=== PATIENT | male | born 1965 | race Caucasian/White ===

== ENCOUNTER → 2019-09-21 16:45 | Outpatient (CLI) | payer BC, SELFPAY ==
--- NOTE | 2019-09-21 | XR_ITS ---
PROCEDURE: XR SHOULDER RT MIN 2V CLINICAL INDICATION: Pain COMPARISON: No exams were available for comparison FINDINGS: No fracture or dislocation. No lytic or blastic change. There is normal mineralization. There are moderate osteoarthritic changes of the acromioclavicular joint. There is mild osteoarthritis of the glenohumeral joint with high-riding humeral head which can be seen with rotator cuff tear is. Other findings:None. IMPRESSION: Osteoarthritis of the AC joint with high-riding humeral head which may be seen with rotator cuff tear is. MRI may confirm Dictated by: Jd Philippe MD 09/21/2019 18:05 Electronically signed by Jd Philippe MD in [place] 09/21/2019 18:05
== END ==
PROVIDERS: PCP Family Medicine; Visit Provider Family Medicine
DX: M25.511 Pain in right shoulder (principal)
CPT/HCPCS: 73030

== ENCOUNTER → 2019-09-29 10:45 | Outpatient (CLI) | payer BC, SELFPAY ==
--- NOTE | 2019-09-29 10:49 | MR_ITS ---
PROCEDURE: MR SHOULDER RT WO CON CLINICAL INDICATION: ACUTE PAIN OF RIGHT SHOULDER Pain with limited range of motion COMPARISON: XR SHOULDER RT MIN 2V from 09/21/2019 TECHNIQUE: Routine multiplanar multi echo sequences are performed without gadolinium enhancement. FINDINGS: There is complete tear of the supraspinatus tendon with retraction of the musculotendinous fibers. The infraspinatus tendon is thinned with increased T2 signal consistent with partial tear.. The subscapularis and teres minor tendons appear intact. No obvious labral tear. There is a small shoulder joint effusion present. The bicipital tendon appears in place but is somewhat thinned. Small amount fluid is present in the subcoracoid region. Fluid is also present in the subdeltoid area and subacromial region. There are osteoarthritic changes of the acromioclavicular joint with subacromial stenosis IMPRESSION: 1. There is complete tear of the supraspinatus tendon with retraction of the musculotendinous fibers. And at least a partial tear of the infraspinatus tendon. 2. Acromioclavicular arthropathy with subacromial stenosis with shoulder joint effusion with fluid also in the sub coracoid region and deep to the deltoid and subacromial area Dictated by: Jd Philippe MD 09/30/2019 14:25 Electronically signed by Jd Philippe MD in [place] 09/30/2019 14:25
== END ==
PROVIDERS: PCP Family Medicine; Visit Provider Family Medicine
DX: M25.511 Pain in right shoulder (principal)
CPT/HCPCS: 73221

== ENCOUNTER → 2019-10-12 14:54 | Outpatient (CLI) | payer BC, SELFPAY ==
--- NOTE | 2019-10-12 15:00 | XR_ITS ---
PROCEDURE: XR CHEST 2V CLINICAL INDICATION: TOBACCO DEPENDENT Shortness of breath COMPARISON: No exams were available for comparison FINDINGS: Unremarkable cardiovascular structures No lobar consolidation or collapse. There is a faint nodular opacity overlying the left lower lung zone at the 6th rib on both sides and may be due to nipple shadows. May be confirmed with nipple markers. Other findings:Degenerative changes thoracic spine with mild kyphosis. Coronary artery calcifications are noted. IMPRESSION: There are coronary artery calcifications suggesting coronary artery disease. Probable bilateral nipple shadows which could be confirmed with repeat exam with nipple markers Dictated by: Jd Philippe MD 10/12/2019 16:23 Electronically signed by Jd Philippe MD in [place] 10/12/2019 16:23
[2019-10-12 15:30] LABS: Basophils % 0.5 % (0.1-2.0); Eosinophils # 0.1 K/mm3 (0.0-0.4); Eosinophils % 1.5 % (0.1-12.0); Hematocrit 48.6 % (42.0-52.0); Hemoglobin 16.7 g/dL (14.1-18.0); Lymphocytes # 2.8 K/mm3 (0.7-4.5); Mean Corpuscular HGB Conc 34.3 g/dL (31.8-35.4); Mean Corpuscular Hemoglobin 32.3 pg (27.0-31.2); Mean Corpuscular Volume 94.1 fl (80-94); Mean Platelet Volume 8.3 fl (7.4-10.4); Monocytes # 0.5 K/mm3 (0.1-1.0); Monocytes % 6.3 % (1.7-9.3); Neutrophils # 4.6 K/mm3 (1.8-7.8); Neutrophils % 56.6 % (37.0-80.0); Platelet Count 158 K/mm3 (142-424); Red Blood Count 5.16 M/mm3 (4.60-6.20); Red Cell Distribution Width 13.1 % (11.5-17.5); White Blood Count 8.1 K/mm3 (4.8-10.8)
--- NOTE | 2019-10-12 15:37 | ECG_ITS ---
APPROVED REPORT Exam: Resting ECG HR:59 bpm ECG Measurements Heart Rate 59 AXES RI 138 P 72 QRSd 94 QRS 17 QT 446 T 72 QTc 441 <Conclusion> Sinus bradycardia Otherwise normal ECG Electronically signed by : Mikie Freeman, 10/16/2019 08:11:53
[2019-10-12 16:40] LABS: Activated Partial Thrombo Time 26.6 seconds (23.6-34.0); INR 1.08 (0.9-1.1)
[2019-10-12 16:44] LABS: Alanine Aminotransferase 81 U/L (12-78); Albumin Level 4.3 g/dl (3.5-5.0); Albumin/Globulin Ratio 1.3 (1.1-1.8); Alkaline Phosphatase 93 U/L (38-126); Aspartate Amino Transferase 52 U/L (17-59); Bilirubin,Total 0.9 mg/dl (0.2-1.3); Blood Urea Nitrogen 12 mg/dl (9-20); Calcium 9.2 mg/dl (8.4-10.2); Carbon Dioxide 26 mmol/L (22.0-30.0); Chloride 106 mmol/L (98-107); Estimated Glomerular Filt Rate 117 ml/min (>60); GFR (African American) 141 ML/MIN (>60); Globulin 3.4 g/dL (1.3-3.2); Glucose 97 mg/dl (74-100); Sodium 139 mmol/L (136-145); Total Protein,Serum 7.7 g/dl (6.3-8.2)
== END ==
PROVIDERS: PCP Family Medicine; Visit Provider Family Medicine
DX: Z01.818 Encounter for other preprocedural examination (principal)
CPT/HCPCS: 36415; 71046; 80053; 85025; 85610; 85730; 93005

== ENCOUNTER → 2019-11-01 06:11 | Outpatient (CLI) | payer BC, SELFPAY ==
--- NOTE | 2019-11-01 06:14 | CA_ITS ---
APPROVED REPORT EXAM: Comprehensive 2D, Doppler, and color-flow Echocardiogram Pipe Fitter Maintenance: Shellie Roche CRT Ht: 6 ft 2 in Wt: 220lbs BSA: 2.26 BP: 175/80 mmHg Indications: Shortness of Breath, Fatigue, Pre-Op shoulder, smoker, abn ekg, 2D Dimensions LVOT 2.23 cm (M/F) 1.5-2.5 M-Mode Dimensions RVDd 2.11 cm (0.9-2.6) LVDd 5.45 cm (3.5-5.7) LVDs 3.89 cm (3.5-5.7) IVSd 1.35 cm (0.6-1.1) PWd 0.94 cm (0.6-1.1) EF (Teich) 54.60% FS 28.60% EDV (Teich) 144.40 mL ESV (Teich) 65.50 mL LV Diastology E/A Ratio 0.56 Mitral Valve MV A Velocity 94.00 (40-130 cm/s) Left Ventricle Left atrium is mildly enlarged, left ventricle is normal size, left ventricle wall thickness is upper limit of normal, there is preserved left ventricular systolic function, visually estimated ejection fraction 55% with no regional wall motion abnormality, grade 1 diastolic dysfunction seen without tissue Doppler evidence of raise left atrial pressure. Right Ventricle Right atrium and right ventricle are normal size and contractility. Aortic Valve Aortic valve is minimally thickened and fibrosed, there is no aortic stenosis or aortic insufficiency. Mitral Valve Mitral valve is grossly normal, there is mild mitral regurgitation. Tricuspid Valve Tricuspid valve grossly normal, there is mild tricuspid regurgitation. Tricuspid regurgitation jet velocity is inadequate for calculation of the right ventricular systolic pressure. Pulmonic Valve Pulmonic valve is poorly visualized. Great Vessels Aortic root is normal size. Pericardium No significant pericardial effusion noted. Conclusion 1. Mildly enlarged left atrium, normal left ventricular size, visually estimated ejection fraction 55% with no regional wall motion abnormality, grade 1 diastolic dysfunction seen without tissue Doppler evidence of raise left atrial pressure. 2. Mild mitral and tricuspid regurgitation. 3. No significant pericardial effusion noted. Electronically signed by : Demarco Dalton, 11/01/2019 19:35:02
--- NOTE | 2019-11-01 06:18 | CA_ITS ---
APPROVED REPORT Exam: Exercise Treadmill Technologist: Erika Barone Ht: 6 ft 3 in Wt: 220 lbs BSA: 2.29 m2 HR: 59 bpm BP: 160/83 mmHg Indications: Shortness of Air Medical History Medications: Aspirin,,,,, RoSUVASTATIN,,,,, Stress Test Details Test: Norberto HR Resting HR: 60 bpm Max Heart Rate (APMHR): 164 bpm Max HR Achieved: 132 bpm Target HR (85% APMHR): 139 bpm % of APMHR: 80 Recovery HR: 84 bpm BP Resting BP: 142.0/81.0 mmHg Max BP: 194.0/85.0 mmHg Recovery BP: 155.0/89.0 mmHg ECG Clinical Reason for Termination: Dyspnea Exercise duration: 08:33 min Highest Stage Achieved: Exercise capacity: 10.1 METs Stress ECG Conclusion Resting ECG: Normal sinus rhythm. Symptoms: Shortness of air Arrhythmias/Ectopy: Frequent PVC's at peak stress. Rare couplet/triplet ST-T Changes: < 1.[address] segment changes Conclusion: Abnormal, non-diagnostic stress test. Did not acheive target heart rate. Positive Ectopy. Test Summary RECOVERY 03:00 0.0 0.0 83 . 194/ 85 . . REST . . . . . . . Standing REST 18:17 0.0 0.0 60 . 142/ 81 . . Stage 1 01:00 10.0 1.7 88 . . . . Stage 1 02:00 10.0 1.7 95 . . . . Stage 1 03:00 10.0 1.7 104 . 144/ 90 . . Stage 2 01:00 12.0 2.5 103 . . . . Stage 2 02:00 12.0 2.5 106 . . . . Stage 2 03:00 12.0 2.5 111 . 162/ 90 . . Stage 3 01:00 14.0 3.4 123 . . . . Stage 3 . . . . . . . Myoview Injected Stage 3 02:00 14.0 3.4 121 . . . . Stage 3 02:33 14.0 3.4 128 . 170/ 90 . Stop exercise at 08:33 RECOVERY 01:00 0.0 0.0 102 . . . . RECOVERY 02:00 0.0 0.0 87 . 190/ 96 . . RECOVERY 03:00 0.0 0.0 83 . 194/ 85 . . RECOVERY 04:00 0.0 0.0 83 . 194/ 85 . . RECOVERY 05:00 0.0 0.0 82 . 194/ 85 . . RECOVERY 06:00 0.0 0.0 81 . 194/ 85 . . RECOVERY 06:39 0.0 0.0 80 . 194/ 85 . . Electronically signed by : Demarco Dalton, 11/01/2019 17:58:58
--- NOTE | 2019-11-01 06:18 | NM_ITS ---
APPROVED REPORT Exam: Nuclear Stress Test Indication: Abnormal EKG, SOB, Tobacco use, Family history, Pre op Patient Location: Outpatient Stress Tech: Erika Abisai NM Tech:Marga Mercado, ARRT, RT (R)(N) Ht: 6 ft 3 in Wt: 220 lbs HR: 59 bpm BP: 160/83 mmHg BSA: 2.29 m2 BMI: 27.4 History: Abnormal EKG, SOB, Tobacco use, Family history, Pre op Procedure: Patient exercised on Norberto protocol 8:33 minutes and sec, resting heart rate 59 bpm, resting blood pressure 142/83 mmHg, with exercise maximum heart rate achived was 132 bpm which is Less than 85 % of the maximum predicted heart rate and blood pressure was 170/90 mmHg. Test was stopped due to SOA and leg fatigue. Patient denied any complaint of chest pain. Patient has Good exercise capacity, achieved 10.1 METs of workload on treadmill, the blood pressure response to exercise was Adequate. Electrocardiogram Resting electrocardiogram showed sinus rhythm, with exercise there is less than 1.[address] segment depression noted from the baseline EKG. The EKG portion of the exercise Myoview is nondiagnostic as patient did not achieve the target heart rate. Cardiac Stress and Resting SPECT Images: Cardiac Stress and Resting SPECT images were obtained using technetium 99m Myoview 29.0 mCi stress and 10.31 mCi at rest. Gated SPECT for the analysis of segmental wall motion and calculation of the ejection fraction also done. Cardiac stress and resting SPECT images show a fixed defect involving the inferior wall with normal contractility gated SPECT is likely secondary to soft tissue attenuation, no reversible ischemia seen. Computer derived ejection fraction is 59% with no regional wall motion abnormality, right ventricle is normal size and contractility. Conclusion: 1. The EKG portion of the exercise Myoview is nondiagnostic as patient did not achieve the target heart rate, patient has good exercise capacity achieved 10.1 mets of workload on treadmill, the blood pressure response to exercise was adequate, there was no exercise-induced chest discomfort. 2. No scintigraphic evidence of reversible ischemia seen at this level of exercise, computer derived ejection fraction 59% with no regional wall motion abnormality, right ventricle is normal size and contractility. Electronically signed by : Demarco Dalton, 11/01/2019 18:03:13
--- NOTE | 2019-11-01 07:43 | HMH.ITSHM ---
Current Home Medications as stated by this patient Kenji Stanton or hostess party sales representative. []CRESTOR ASA
== END ==
PROVIDERS: PCP Family Medicine; Visit Provider Internal Medicine Cardiovascular Disease
DX: Z01.810 Encounter for preprocedural cardiovascular examination (principal); R06.02 Shortness of breath; R94.31 Abnormal electrocardiogram [ECG] [EKG]; I25.10 Atherosclerotic heart disease of native coronary artery without angina pectoris; I25.84 Coronary atherosclerosis due to calcified coronary lesion
CPT/HCPCS: 78452; 93017; 93306; A9502

== ENCOUNTER → 2019-11-19 15:02 | Outpatient (CLI) | payer BC, SELFPAY ==
--- NOTE | 2019-11-19 15:09 | XR_ITS ---
PROCEDURE: XR SHOULDER RT MIN 2V CLINICAL INDICATION: shoulder pain COMPARISON: CR XR SHOULDER RT MIN 2V from 09/21/2019 FINDINGS: No fracture or dislocation. No lytic or blastic change. There is normal mineralization. There is moderate subacromial stenosis with mild superior location of the humeral head in the glenoid. This may be seen with rotator cuff disease. Osteoarthritic changes are present at the AC joint and glenohumeral joint. No acute fracture or dislocation. There is subchondral cystic changes of the humeral head IMPRESSION: Osteoarthritis with subacromial stenosis and sub chondral cystic changes of the humeral head. Suggesting rotator cuff disease may be confirmed with MRI if clinically desired. The subacromial stenosis appears worse compared to 09/21/2019.. Dictated by: Jd Philippe MD 11/19/2019 15:37 Jd Philippe MD in [place] 11/19/2019 15:37
== END ==
PROVIDERS: PCP Family Medicine; Visit Provider Orthopaedic Surgery
DX: M19.011 Primary osteoarthritis, right shoulder (principal); M75.101 Unspecified rotator cuff tear or rupture of right shoulder, not specified as traumatic
CPT/HCPCS: 73030

== ENCOUNTER → 2019-11-22 14:53 | Outpatient (CLI) | payer BC, SELFPAY ==
[2019-11-22 14:55] LABS: MANUAL DIFFERENTIAL MANUAL DIFFERENTIAL (MANUAL DIFF)
[2019-11-22 15:38] LABS: Basophils % 0.4 % (0.1-2.0); Eosinophils # 0.1 K/mm3 (0.0-0.4); Eosinophils % 0.9 % (0.1-12.0); Hematocrit 46.5 % (42.0-52.0); Lymphocytes # 2.6 K/mm3 (0.7-4.5); Lymphocytes % 33.8 % (10-50); Mean Corpuscular HGB Conc 34.5 g/dL (31.8-35.4); Mean Corpuscular Volume 92.7 fl (80-94); Mean Platelet Volume 8.7 fl (7.4-10.4); Monocytes # 0.5 K/mm3 (0.1-1.0); Monocytes % 6.4 % (1.7-9.3); Neutrophils # 4.5 K/mm3 (1.8-7.8); Neutrophils % 58.5 % (37.0-80.0); Platelet Count 162 K/mm3 (142-424); Red Blood Count 5.01 M/mm3 (4.60-6.20); Red Cell Distribution Width 12.8 % (11.5-17.5); White Blood Count 7.7 K/mm3 (4.8-10.8)
[2019-11-22 16:04] LABS: Eosinophils % 1 % (0-3); Lymphocytes % 32 % (10-50); Monocytes % 6 % (2-9); Neutrophils % 61 % (42-76); Total Cells Counted 100
[2019-11-22 16:05] LABS: Platelet Estimate Normal; RBC Morphology Normal
[2019-11-22 16:12] LABS: Chloride 105 mmol/L (98-107); Potassium 4.2 mmoL/L (3.5-5.1); Sodium 139 mmol/L (136-145)
[2019-11-22 16:15] LABS: Alanine Aminotransferase 165 U/L (12-78); Albumin Level 4.1 g/dl (3.5-5.0); Albumin/Globulin Ratio 1.3 (1.1-1.8); Alkaline Phosphatase 72 U/L (38-126); Anion Gap 12.2 mEq/L (5-15); Aspartate Amino Transferase 99 U/L (17-59); Bilirubin,Total 0.5 mg/dl (0.2-1.3); Blood Urea Nitrogen 15 mg/dl (9-20); Calcium 9.5 mg/dl (8.4-10.2); Carbon Dioxide 26 mmol/L (22.0-30.0); Estimated Glomerular Filt Rate 100 ml/min (>60); GFR (African American) 121 ML/MIN (>60); Globulin 3.2 g/dL (1.3-3.2); Glucose 129 mg/dl (74-100); Total Protein,Serum 7.3 g/dl (6.3-8.2)
== END ==
PROVIDERS: Visit Provider Orthopaedic Surgery
DX: Z01.818 Encounter for other preprocedural examination (principal); M25.511 Pain in right shoulder
CPT/HCPCS: 36415; 80053; 85007; 85014; 85018; 85048; 85049

== ENCOUNTER 2019-11-23 07:59 | Day surgery (SDC) | payer BC, SELFPAY ==
[2019-11-22 15:17] VITALS: BMI 28.2
[2019-11-23] VITALS (12 sets, daily range): BP systolic 119–145; BP diastolic 61–72; PULSE 62–73; RESP 18–22; TEMP 36.1–43; O2SAT 90–96
[2019-11-23 06:53] LABS: Coronavirus 19 IgG Antibody Negative (Negative); Coronavirus 19 IgM Antibody Negative (Negative)
--- NOTE | 2019-11-23 12:56 | SUR.OPER ---
1250 - Incision to perform open rotator cuff repair.
--- NOTE | 2019-11-23 13:11 | P.PN_ITS ---
[facility] Anesthesia Checklist - Patient Identification Patient Identification: Arm Band, Verbal (Name & ) - Structural Data Admitted From: Home Planned Operative Procedure/s: Right shoulder arthroscopy, RCR Consent for Planned Operative Procedure(s) Verified: Yes Verified Documents: Surgical Consent, History and Physical - NPO Status Verified Time NPO: 00:00 - Chart Verification Results Verified: CBC, BMP, PT, PTT, INR - Additional verifications Anesthesia Reactions: No Hx Blood Transfusions: No Blood Transfusion Reaction: No - Airway Assessment C-Spine Mobility Assessed: Yes (MP 2, TMD 3, facial hair) TMJ Mobility Assessed: Yes Dentition: Edentulous - Neurological Assessment Level of Consciousness: Awake, Alert, Appropriate, Follows Commands Hx Seizures: No Numbness or tingling in extremities: No - Anesthesia Plan Anesthesia Risk discussed: Yes Anesthesia Plan: Verified ASA Class: II Anesthesia Type: General w/block [facility] History I have reviewed the patient's past medical history: Yes Medical History: Reports:: Hyperlipidemia Denies:: Cancer, Diabetes Mellitus Type 1, Diabetes Mellitus Type 2, Internal Pacemaker, MRSA, Seizures *Have you ever received a pneumonia vaccine?: No *Have you received a flu vaccine this season?: No Other Medical History: Denies: Blood Transfusion Reaction Anesthesia experience/problems:: No prior complications Laterality Cases: Right: Arthroscopy Knee Other Surgeries: No: Pacemaker Amputation: No - *Social History Last grade of school completed: 11th or 12th Smoking Status: Current every day smoker Tobacco Type: cigarettes # Packs/Day (cigarettes): 2 #Yrs smoked (if former smoker): 40 Alcohol Intake: never Substance Use Type: marijuana *Occupational Status:: other Housing: house Household Members: spouse *Travel in the last 8 weeks: None Family Hx:: Asthma, Diabetes, Heart Attack
--- NOTE | 2019-11-23 14:27 | HMH.ANESI ---
[facility] Anesthesia Record Part I Intake, IV Amount: 1,200 Estimated blood loss (mL): 25 Urine output (mL): 0 (NM) Blood Products used (#): none Blood Pressure: 133/61 SaO2: 93 Pulse Rate: 66 Respiratory Rate: 22 Temperature: 97.5 F Patient is:: Drowsy, Nasal O2, Stable Stable to PACU at:: 14:20
--- NOTE | 2019-11-23 15:05 | HMH.OPNOTE ---
Date of procedure: 11/23/19 Pre-op Diagnosis:: R shoulder: 1) rotator cuff (RTC) tear 2) likely biceps (LHBT) tendinopathy 3) subacromial stenosis Post-op Diagnosis:: R shoulder: 1) rotator cuff (RTC) tear = 3 x 3cm 2) proximal biceps tendon rupture 3) subacromial stenosis Procedure performed:: R shoulder arthroscopy with: 1) extensive debridement 2) subacromial decompression with acromioplasty 3) open RTC repair; supraspinatus and infraspinatus Surgeon:: Jami Lo MD Maintenance Planner(s):: Mitra Hussein FURNITURE ASSEMBLER:: Edson Ashraf Anesthesia: GETA, regional (interscalene block) Estimated blood loss (mL): 25 Clinical Note:: 54-year-old [id number] gentleman with chronic R shoulder pain. He has had pain in the shoulder for years, but it has been mild and intermittent. He fell in his driveway 2 months ago but felt that his range of motion and pain was fine after that injury. However, around 1 month ago he tried to throw a 50 pound bag of dog food in the back of his truck when he felt a pop in the right shoulder. Since that time he has had decreased range of motion, decreased strength in the shoulder and persistent pain. No previous surgeries on the shoulder in the past. MRI revealed a rotator cuff tear, moderate in size with retraction. I discussed treatment options with the patient and given his age, dominant arm affected, and nature of his work, I recommended surgical intervention. He was sent for medical and cardiac clearance, which was obtained. I discussed the procedure with the patient, the expected perioperative and long-term outcome. He is at high risk of the RTC not healing or re-tearing due to his status as a smoker. He vocalized understanding of this and has chosen to proceed with surgery, and to work on smoking cessation. I discussed the risks of surgery with the patient, including but not limited to: bleeding, infection, neurovascular damage, compartment syndrome of the upper extremity and/or torso from fluid extravasation, risk of stroke from hypotensive anesthesia in the beachchair position, risk of RTC non-healing or retearing, risk of the RTC being irrepairable, risk of continued pain and post-operative stiffness, and the risk that additional procedures may be required in the future. The patient vocalized understanding of these risks and provided informed consent for the procedure. Operative findings:: -- proximal biceps rupture; small stump remains, distal tendon not visible -- degenerative labral fraying -- mild thinning of articular cartilage over humeral head/glenoid, but no focal defects -- no loose bodies in joint -- severe subacromial stenosis -- large RTC tear, appears chronic, mild retraction but mobile; 3 x 3 cm Operative note:: The patient was identified in preoperative holding and the right shoulder signed by myself. Consent was reviewed with the patient and all questions answered. Interscalene nerve block was performed by anesthesia and the patient was taken to the OR. He was placed supine on the operative table, 900mg clindamycin was infused and general anesthesia induced. The patient was then positioned into the beachchair position with the head in a neutral position and all bony prominences padded. The right shoulder was then prepped and draped in the usual sterile fashion for shoulder arthroscopy. Timeout was performed, identifying the correct patient, correct procedure, and correct site. I began the procedure by making a standard posterior viewing portal on the R shoulder, through which a 30 degree arthroscope was inserted into the glenohumeral joint. There was significant labral fraying and synovitis in the joint. The proximal biceps had spontaneously ruptured and a small proximal stump of tendon remained; this had rounded, smooth edges and appeared to be a chronic injury. Using a spinal needle and an outside-in technique an anterior working portal was established and a 7 mm cannula placed. T
--- NOTE | 2019-11-23 16:11 | P.PN_ITS ---
[facility] Anesthesia Record Part II Discharge Time: 14:50 Destination: Surgical Day Care (OP Surgery) PACU nurse assessment reviewed?: Yes Patient Condition:: Good Anesthesia Complications:: None Swallowing reflex intact?: Yes Cyanosis?: No Blood Pressure: 138/70 Pulse Rate: 66 Temperature: 97.8 F Mental Status: Alert & Oriented Pain level:: 0 Nausea and/or vomitting:: None Intake, IV Amount: 0 (Normovolemic)
== END 2019-11-23 15:28 | disposition home or self-care (01) ==
LOC: OR 07:59
PROVIDERS: PCP Family Medicine; Visit Provider Orthopaedic Surgery
PROC: (CPT 29805; principal; 2019-11-23 09:30)
DX: M75.121 Complete rotator cuff tear or rupture of right shoulder, not specified as traumatic (principal); M66.821 Spontaneous rupture of other tendons, right upper arm; M75.41 Impingement syndrome of right shoulder; Z53.33 Arthroscopic surgical procedure converted to open procedure
CPT/HCPCS: 29823; 23420; 86328; 96374; C1713; J2405

== ENCOUNTER → 2020-02-16 08:35 | Outpatient (CLI) | payer BC, SELFPAY ==
--- NOTE | 2020-02-16 08:38 | XR_ITS ---
PROCEDURE: XR SHOULDER RT MIN 2V CLINICAL INDICATION: S/P rt shoulder arthroscopy Follow-up surgery COMPARISON: CR XR SHOULDER RT MIN 2V from 09/21/2019 CR XR SHOULDER RT MIN 2V from 11/19/2019 FINDINGS: Osteoarthritic changes are present at the acromioclavicular joint and glenohumeral joint. There are 2 anchor screws nail at the humeral head region. No fracture or dislocation. No lytic or blastic change. Subacromial stenosis is less apparent. There is lucency noted along the infra acromial region possibly due osteotomy. Correlate with surgical procedure. Other findings:None. IMPRESSION: Osteoarthritis with postsurgical changes Dictated by: Jd Philippe MD 02/16/2020 13:01 Jd Philippe MD in [place] 02/16/2020 13:01
== END ==
PROVIDERS: PCP Family Medicine; Visit Provider Orthopaedic Surgery
DX: M75.101 Unspecified rotator cuff tear or rupture of right shoulder, not specified as traumatic (principal); M75.41 Impingement syndrome of right shoulder; S46.111A Strain of muscle, fascia and tendon of long head of biceps, right arm, initial encounter
CPT/HCPCS: 73030

== ENCOUNTER 2020-03-09 08:00 | Outpatient (RCR) | payer BC, SELFPAY ==
--- NOTE | 2019-12-30 09:19 | HMH.PTOPEV ---
PT Outpatient Evaluation Rehab PT Outpatient Evaluation Start: 12/30/19 08:29 Freq: Status: Active Protocol: Document 12/30/19 09:10 WENDY (Rec: 12/30/19 09:19 PHOSTEPAN [id number]) Electronically Signed By Joel Greenfield, PT 12/30/19 09:10 Outpatient Therapy Subjective History Subjective History Pt is 54 yowm who presents ~ 5 wks S/P R open RTC repair with subacromial decompression (OR performed 11/22). He reports aching and stiffness in the R UE. He has returned to work on light duty and reports wearing his sling at work, but trying to leave it off as much as he can at home. He reports PMH of HTN and HL. Chief Complaint Pain,Stiff Symptom Type Ache Symptoms Relieved By Rest/Positioning,Ice Symptoms Aggravated By Physical Activity Prior Functional Limitations None Current Functional Limitations Reaching,Lifting,Driving, Sleeping,Recreation Activity Symptom Description Constant but Variable Level of pain today (0-10) 4 Pain scale - at its worst (0-10) 7 Shoulder/Elbow Eval Shoulder Objective Measurements Palpation Tenderness Shoulder Palpation Findings Tenderness Shoulder Palpation Overall Comment 2/4 around surgical site. Posture Shoulder Posture Sitting Position (R) Forward Shoulder ROM Right Shoulder Abduction Passive Range of 0-92 Motion (degrees) Shoulder Flexion Passive Range of Motion 0-120 (degrees) Shoulder External Rotation Passive Range 0-24 of Motion (degrees) Shoulder Internal Rotation Passive Range 0-50 of Motion (degrees) pain with passive ROM shoulder exam right standard Shoulder MMT Anterior Deltoid Strength Grade 2 Poor Shoulder Abduction Strength Grade 2 Poor Shoulder Extension Strength Grade 2 Poor Shoulder Flexion Strength Grade 2 Poor Shoulder External Rotation Strength 2 Poor Grade Shoulder Internal Rotation Strength 2 Poor Grade Shoulder Strength Reason Not Measured Orthopedic Precautions Elbow Objective Measurements Outpatient Therapy Assessment Impairments Problems/Impairmments Palpation Tenderness,Impaired Range of Motion,Impaired Strength,Impaired Lifting, Impaired Recreational Activities,Impaired Work Activities,Subjective C/O Pain ,Impa
--- NOTE | 2020-02-03 10:05 | HMH.RHREAS ---
Rehab Reassessment Rehab OP Re-assessment Start: 02/03/20 10:00 Freq: Status: Active Protocol: Document 02/03/20 10:02 WENDY (Rec: 02/03/20 10:04 WENDY [id number]) Electronically Signed By Joel Greenfield, PT 02/03/20 10:02 Rehab Re-assessment Subjective Subjective Pt reports he continues to be sore, but is getting better every day. Objective Objective Notes PROM R shld: Flex= 0-175, ABD= 0-175, ER= 0-85, IR= 0-80 Assessment Progress Assessment Progressing as Expected Assessment Notes Pt has shown significant improvement in PROM, strength needs to improve as expected. Patient goals met ST,2,3,4,5 Goals Not Met LT,2,3,4,5,6,7 Revised Goals none Plan Plan Continue per initial POC. Frequency of Therapy 2 x/wk Duration of therapy 8 wks Time and Billing Re-Eval Time 15 Re-Eval Billing Units 1 PHYSICIAN CERTIFICATION: I certify the specified therapy services for Kenji Stanton are required, authorized, and reviewed every 30 days.
--- NOTE | 2020-03-03 09:54 | HMH.RHREAS ---
Rehab Reassessment Rehab OP Re-assessment Start: 02/03/20 10:00 Freq: Status: Active Protocol: Document 03/03/20 09:50 WENDY (Rec: 03/03/20 09:53 WENDY [id number]) Electronically Signed By Joel Greenfield, PT 03/03/20 09:50 Rehab Re-assessment Subjective Subjective Pt reports pain intermittently at this point, but continues to feel very weak. Objective Objective Notes PROM R SHLD (in deg): Flex= 0- 180, ABD= 0-180, IR= 0-85, ER= 0-90 MMT R SHLD: ER= 3+/5, IR= 4+/5 , Flex= 3/5, ABD= 3/5 Assessment Progress Assessment Progressing as Expected Assessment Notes ROM is excellent at this time, but strength remains significantly weak. Patient goals met ST,2,3,4,5 LT,2 Goals Not Met LT,4,5,6,7 Revised Goals none Plan Plan Continue per initial POC. Frequency of Therapy 2 x/wk Duration of therapy 8 wks Time and Billing Re-Eval Time 15 Re-Eval Billing Units 1 PHYSICIAN CERTIFICATION: I certify the specified therapy services for Kenji Stanton are required, authorized, and reviewed every 30 days.
== END 2020-03-09 08:05 | disposition home or self-care (01) ==
LOC: PT 08:00
PROVIDERS: PCP Family Medicine; Visit Provider Orthopaedic Surgery
DX: M75.121 Complete rotator cuff tear or rupture of right shoulder, not specified as traumatic (principal); S46.111D Strain of muscle, fascia and tendon of long head of biceps, right arm, subsequent encounter; M75.41 Impingement syndrome of right shoulder
CPT/HCPCS: 97010; 97014; 97016; 97033; 97110; 97140; 97163; 97164; 97530; G0283

== ENCOUNTER → 2020-12-08 08:48 | Outpatient (CLI) | payer BC, SELFPAY ==
[2020-12-08 10:19] LABS: Alanine Aminotransferase 130 U/L (12-78); Albumin Level 3.9 g/dl (3.5-5.0); Albumin/Globulin Ratio 1.2 (1.1-1.8); Alkaline Phosphatase 72 U/L (38-126); Anion Gap 11.3 mEq/L (5-15); Aspartate Amino Transferase 79 U/L (17-59); Bilirubin,Total 0.7 mg/dl (0.2-1.3); Blood Urea Nitrogen 10 mg/dl (9-20); Carbon Dioxide 28 mmol/L (22.0-30.0); Chloride 104 mmol/L (98-107); Chol/HDL Ratio 2.4 (1-3.5); Cholesterol 80 mg/dl (140-200); Estimated Glomerular Filt Rate 139 ml/min (>60); GFR (African American) 168 ML/MIN (>60); Globulin 3.3 g/dL (1.3-3.2); Glucose 102 mg/dl (74-100); HDL Cholesterol 34 mg/dl (40-60); Potassium 4.3 mmoL/L (3.5-5.1); Sodium 139 mmol/L (136-145); Total Protein,Serum 7.2 g/dl (6.3-8.2); Triglycerides 58 mg/dl (30-150); VLDL Cholesterol 12 mg/dL (0-40)
[2020-12-08 10:30] LABS: Direct LDL Cholesterol 34.03 mg/dL (100-129)
== END ==
PROVIDERS: Visit Provider Family Medicine
DX: I10 Essential (primary) hypertension (principal); E78.5 Hyperlipidemia, unspecified
CPT/HCPCS: 36415; 80053; 80061

== ENCOUNTER → 2020-12-18 10:48 | Outpatient (CLI) | payer BC, SELFPAY | PROVIDERS: PCP Family Medicine; Visit Provider Nurse Practitioner | DX: Z20.822 Contact with and (suspected) exposure to COVID-19 (principal); U07.1 COVID-19 | CPT/HCPCS: C9803; U0003; U0005 ==

== ENCOUNTER → 2020-12-27 09:24 | Outpatient (CLI) | payer BC, SELFPAY | PROVIDERS: PCP Family Medicine; Visit Provider Nurse Practitioner | DX: Z20.822 Contact with and (suspected) exposure to COVID-19 (principal) | CPT/HCPCS: C9803; U0003; U0005 ==